=== PATIENT | male | born 1995 ===

== ENCOUNTER 2016-11-04 04:33 | Emergency (ER) | payer OTHER ==
--- NOTE | 2016-11-04 04:51 | ED PDOC ---
HPI: General Adult Time Seen by Provider: 11/04/16 04:49 Chief Complaint (Nursing): Chest Pain Chief Complaint (Provider): chest pain, SOB, dizziness History Per: Patient Additional Complaint(s): 21 year old male presents to ED with chest pain, shortness of breath and dizziness that started 30 minutes prior to arrival. Patient states the symptoms woke him up from his sleep. He rates chest pain as 6/10 and states it spans across entire anterior chest. No fever, chills or cough, no vomiting. Patient denies any history of similar symptoms. Past Medical History Reviewed: Historical Data, Nursing Documentation, Vital Signs Vital Signs: Last Vital Signs Temp 98.7 F 11/04/16 04:46 Pulse 105 H 11/04/16 04:46 Resp 16 11/04/16 04:46 BP 156/97 H 11/04/16 04:46 Pulse Ox 100 11/04/16 05:16 - Medical History PMH: Diabetes - Surgical History Surgical History: No Surg Hx - Family History Family History: States: No Known Family Hx - Living Arrangements Living Arrangements: With Family - Social History Current smoker - smoking cessation education provided: No Alcohol: None Drugs: Denies - Allergies Allergies/Adverse Reactions: Allergies Allergy/AdvReac Type Severity Reaction Status Date / Time No Known Allergies Allergy Verified 11/04/16 04:45 Review of Systems ROS Statement: Except As Marked, All Systems Reviewed And Found Negative Constitutional: Negative for: Fever Cardiovascular: Positive for: Chest Pain. Negative for: Edema, Light Headedness Respiratory: Positive for: Shortness of Breath. Negative for: Cough Gastrointestinal: Negative for: Nausea, Vomiting Neurological: Positive for: Dizziness. Negative for: Headache Physical Exam - Reviewed Nursing Documentation Reviewed: Yes Vital Signs Reviewed: Yes - Physical Exam Appears: Positive for: Well, Non-toxic, No Acute Distress Head Exam: Positive for: ATRAUMATIC, NORMAL INSPECTION Skin: Negative for: Rash Eye Exam: Positive for: Normal appearance, EOMI, PERRL Cardiovascular/Chest: Positive for: Regular Rate, Rhythm Respiratory: Positive for: Normal Breath Sounds. Negative for: Wheezing, Respiratory Distress Extremity: Negative for: Pedal Edema Neurologic/Psych: Positive for: Alert, Oriented - ECG Interpretation Of ECG: NSR 98 bpm, no acute finding, reviewed by PA and ED attending O2 Sat by Pulse Oximetry: 100 Pulse Ox Interpretation: Normal - Other Rad CXR X-Ray: Interpreted by Me, Viewed By Me X-Ray Interpretation: no acute finding Medical Decision Making Medical Decision Makin21 year old with chest pain, SOB and dizziness Plan: EKG CXR CBC CMP Trop D-dimer IVF Disposition - Clinical Impression Clinical Impression: Chest pain, Dizziness, Shortness of breath - Patient ED Disposition Is Patient to be Admitted: Transfer of Care - Disposition Referrals: Ramya De La Cruz MD [Primary Care Provider] - Disposition Time: 06:00 Condition: STABLE Patient Signed Over To: José Miguel Mckeon Handoff Comments: Case was signed out to Dr. Mckeon pending diagnostic testing results and final disposition
[2016-11-04] MEDS ORDERED: Sodium Chloride 0.9% 1,000 ML IV STA (05:16)
[2016-11-04 06:03] LABS: BASO # 0.1 K/uL (0.0-0.2); BASO % 0.5 % (0.0-2.0); EOS # 0.2 K/uL (0.0-0.7); EOS % 1.6 % (0.0-4.0); HEMOGLOBIN 12.8 g/dL (12.0-18.0); LYMPH # 3.6 K/uL (1.0-4.3); LYMPH % 27.4 % (20.0-40.0); MEAN CELL VOLUME 80.5 fl (80.0-94.0); MEAN CORPUSCULAR HEMOGLOBIN 26.1 pg (27.0-31.0); MEAN CORPUSCULAR HGB CONC 32.4 g/dL (33.0-37.0); MEAN PLATELET VOLUME 7.3 fl (7.2-11.7); MONO # 0.6 K/uL (0.0-0.8); MONO % 4.6 % (0.0-10.0); NEUT # 8.7 K/uL (1.8-7.0); NEUT % 65.9 % (50.0-75.0); RBC 4.9 Mil/uL (4.40-5.90); RED CELL DISTRIBUTION WIDTH 14.4 % (11.5-14.5); WHITE BLOOD COUNT 13.3 K/uL (4.8-10.8)
--- NOTE | 2016-11-04 06:12 | ED PDOC ---
- Laboratory Results Result Diagrams: 11/04/16 05:53 11/04/16 05:53 - ECG O2 Sat by Pulse Oximetry: 100 - Progress ED Course And Treament: Assumed care from KAMILLE Ackerman. Pending labs and final disposition. Disposition - Clinical Impression Clinical Impression: Chest pain, Dizziness, Shortness of breath - POA Present On Arrival: None - Disposition Referrals: Ramya De La Cruz MD [Primary Care Provider] - Disposition: Transfer of Care Disposition Time: 07:00 Condition: STABLE Patient Signed Over To: Judah Gallagher Handoff Comments: pending CT angio
[2016-11-04 06:15] LABS: ALB/GLOB RATIO 1.3 (1.0-2.1); ALBUMIN 4.5 g/dL (3.5-5.0); ALT/SGPT 51 U/L (21-72); AST/SGOT 34 U/L (17-59); BLOOD UREA NITROGEN 15 mg/dl (9-20); CALCIUM 9.7 mg/dL (8.4-10.2); GFR AFRICAN-AMERICAN > 60; GFR NON-AFRICAN AMERICAN > 60
[2016-11-04] MEDS ORDERED: Sodium Chloride 0.9% 50 ML IV ONE (07:31)
[2016-11-04 08:21] VITALS: O2SAT 97
--- NOTE | 2016-11-04 08:28 | RAD ---
HISTORY: SOB, chest pain COMPARISON: Comparison is made to 11/25/2008 TECHNIQUE: Chest PA and lateral FINDINGS: LUNGS: No active pulmonary disease. PLEURA: No significant pleural effusion identified. No pneumothorax apparent. CARDIOVASCULAR: Normal. OSSEOUS STRUCTURES: No significant abnormalities. VISUALIZED UPPER ABDOMEN: Normal. OTHER FINDINGS: None. IMPRESSION: No active disease. No significant interval change.
--- NOTE | 2016-11-04 08:45 | CT ---
PROCEDURE: CT Chest with contrast (Pulmonary Angiogram) HISTORY: chest pain COMPARISON: None available. TECHNIQUE: Axial computed tomography images were obtained of the chest in the pulmonary arterial phase of enhancement. Coronal and sagittal reformatted images were created and reviewed. Intravenous contrast dose: 100 mL of Visipaque 320 Radiation dose: Total exam DLP = 512.23 mGy-cm. This CT exam was performed using one or more of the following dose reduction techniques: Automated exposure control, adjustment of the mA and/or kV according to patient size, and/or use of iterative reconstruction technique. FINDINGS: PULMONARY ARTERIES: Suboptimal opacification of the peripheral pulmonary arteries. . No evidence of central pulmonary embolism. AORTA: No acute findings. No thoracic aortic aneurysm. LUNGS: Unremarkable. No nodule, mass or pulmonary consolidation. PLEURAL SPACES: Unremarkable. No effusion or pneuomothorax. HEART: Unremarkable. No cardiomegaly. No significant pericardial effusion. LYMPH NODES: No lymphadenopathy. BONES, CHEST WALL: Unremarkable. No fracture or destructive lesion OTHER FINDINGS: Hepatomegaly and moderate hepatic steatosis are noted IMPRESSION: Suboptimal study due to the patient's body habitus. No evidence of central pulmonary embolus. No evidence of acute pulmonary disease or pleural effusion. Hepatomegaly and moderate hepatic steatosis.
[2016-11-04 11:30] VITALS: BP 126/92; PULSE 91; RESP 18
--- NOTE | 2016-11-04 11:47 | ED PDOC ---
- Laboratory Results Result Diagrams: 11/04/16 05:53 11/04/16 05:53 - ECG O2 Sat by Pulse Oximetry: 97 - Progress Re-evaluation Time: 11:45 Condition: Improved Disposition - Clinical Impression Clinical Impression: Chest pain, Dizziness, Shortness of breath - POA Present On Arrival: None - Disposition Referrals: Ramya De La Cruz MD [Primary Care Provider] - Disposition: Routine/Home Disposition Time: 11:51 Condition: STABLE Prescriptions: Clindamycin [Cleocin] 300 mg PO TID #30 cap Naproxen [Naprosyn] 500 mg PO Q12H #20 tab Instructions: Chest Pain (ED), Cellulitis (ED)
[2016-11-04 11:59] VITALS: TEMP 98.8
--- NOTE | 2016-11-04 16:02 | CARD ---
APPROVED REPORT EKG Measurement Heart [id number] <Conclusion> Normal sinus rhythm Normal ECG
== END 2016-11-04 12:06 | disposition home or self-care (01) ==
LOC: H.ER 04:33
DX: R07.89 Other chest pain (principal); R06.02 Shortness of breath; R42 Dizziness and giddiness; E11.9 Type 2 diabetes mellitus without complications; K76.0 Fatty (change of) liver, not elsewhere classified